=== PATIENT | male | born 1940 | race Caucasian/White ===

== ENCOUNTER 2019-03-06 08:36 | Outpatient (REF) | payer MEDICARE, SELFPAY ==
[2019-03-06 13:39] LABS: ALT 14 U/L (12-78); AST 22 U/L (15-37); Albumin 3.6 g/dL (3.4-5.0); Alkaline Phosphatase 49 U/L (46-116); Anion Gap 8.8 mmol/L (3-11); BUN 23 mg/dL (7-18); Bilirubin, Total 0.4 mg/dL (0.2-1.0); CO2 27.2 mmol/L (21.0-32.0); CREATININE 1.15 mg/dL (0.70-1.30); Calcium 9.1 mg/dL (8.5-10.1); Chloride 104 mmol/L (98-107); Cholesterol 171 mg/dL (50-200); Glucose 85 mg/dL (70-100); HDL Cholesterol 80 mg/dL (40-60); LDL CHOLESTEROL 69 mg/dL (<100); Potassium 4.2 mmol/L (3.5-5.1); Sodium 140 mmol/L (136-145); Total Protein 7.7 g/dL (6.4-8.2); Triglyceride 81 mg/dL (30-150)
== END 2019-03-06 08:56 ==
LOC: NCHCN 08:36
PROVIDERS: PCP Family Medicine; Visit Provider Family Medicine
DX: E78.5 Hyperlipidemia, unspecified (principal); I10 Essential (primary) hypertension
CPT/HCPCS: 80053; 80061; 83721

== ENCOUNTER 2021-03-10 09:22 | Outpatient (REF) | payer MEDICARE, SELFPAY ==
[2021-03-10 13:12] LABS: HCT 41.8 % (40.0-50.0); HGB 14.1 g/dL (13.5-17.5); MCH 31.6 pg (27.0-33.0); MCHC 33.7 % (32.0-36.0); MCV 93.7 fL (80-95); MPV 10.6 fL (8.0-11.0); Platelet Count 297 10^3/uL (130-400); RBC 4.46 10^6/uL (4.36-5.78); RDW 13.2 % (11.8-14.1); RDW-SD 45.1 fL; WBC 6.77 10^3/uL (4.4-10.8)
[2021-03-10 13:33] LABS: ALT 27 U/L (16-63); AST 19 U/L (15-37); Albumin 4.2 g/dL (3.4-5.0); Alkaline Phosphatase 49 U/L (46-116); Anion Gap 7.1 mmol/L (3-11); BUN 25 mg/dL (7-18); Bilirubin, Total 0.6 mg/dL (0.2-1.0); CO2 28.9 mmol/L (21.0-32.0); CREATININE 1.3 mg/dL (0.70-1.30); Calcium 9.7 mg/dL (8.5-10.1); Calculated LDL 87 mg/dL (<100); Chloride 106 mmol/L (98-107); Cholesterol 181 mg/dL (<200); Estimated GFR 53.39 (mL/min/1.73m2); Glucose 101 mg/dL (74-106); HDL Cholesterol 85 mg/dL (40-60); Potassium 5.3 mmol/L (3.5-5.1); Sodium 142 mmol/L (136-145); Total Protein 8.1 g/dL (6.4-8.2); Triglyceride 45 mg/dL (<150)
[2021-03-10 18:22] LABS: PSA, Screening 0.7 ng/mL (0.0-6.5)
== END 2021-03-10 09:23 | disposition home or self-care (01) ==
LOC: NCHCN 09:22
PROVIDERS: PCP Family Medicine; Visit Provider Family Medicine
DX: I10 Essential (primary) hypertension (principal); E78.5 Hyperlipidemia, unspecified; N52.9 Male erectile dysfunction, unspecified; Z12.5 Encounter for screening for malignant neoplasm of prostate
CPT/HCPCS: 80053; 80061; 84153; 85027

== ENCOUNTER 2021-03-31 10:51 | Outpatient (CLI) | payer MEDICARE, SELFPAY ==
--- NOTE | 2021-03-31 09:00 | DI.RAD_ITS ---
Exam(s) XR KNEE LT 3V AP,LAT,CAITLIN EXAM: XR KNEE LT 3V AP,LAT,CAITLIN CLINICAL HISTORY: left knee pain. TECHNIQUE: 2D digital imaging was performed. COMPARISON: No exams were available for comparison FINDINGS: There is no evidence of fracture. There is a joint effusion noted. There is significant narrowing o f the medial compartment and marginal osteophytes. Preservation of height of the lateral compartment noted. Patellofemoral compartment exhibits minimal degenerative changes. Vascular calcification is noted in the popliteal artery.. IMPRESSION: Degenerative changes most evident in the medial compartment. There is also a joint effusion noted DATA REPOSITORY: RADIATION DOSE DELIVERED:
== END 2021-03-31 10:52 | disposition home or self-care (01) ==
LOC: DIORS 10:51
PROVIDERS: PCP Family Medicine; Referring Provider Family Medicine; Visit Provider Student in an Organized Health Care Education/Training Program
DX: M25.562 Pain in left knee (principal); M17.12 Unilateral primary osteoarthritis, left knee; M25.462 Effusion, left knee
CPT/HCPCS: 20610; 73562; 99203; J1040

== ENCOUNTER 2021-09-01 16:32 | Outpatient (REF) | payer MEDICARE, SELFPAY ==
[2021-09-01 21:16] LABS: Uric Acid 8.3 mg/dL (3.5-7.2)
== END 2021-09-01 16:33 | disposition home or self-care (01) ==
LOC: NCHCN 16:32
PROVIDERS: PCP Family Medicine; Visit Provider Family Medicine
DX: M10.9 Gout, unspecified (principal)
CPT/HCPCS: 84550

== ENCOUNTER 2022-03-15 15:38 | Outpatient (REF) | payer MEDICARE, SELFPAY ==
[2022-03-15 15:51] LABS: ALT 24 U/L (16-63); AST 14 U/L (15-37); Albumin 3.9 g/dL (3.4-5.0); Alkaline Phosphatase 60 U/L (46-116); Anion Gap 8.5 mmol/L (3-11); BUN 24 mg/dL (7-18); Bilirubin, Total 0.5 mg/dL (0.2-1.0); CO2 27.5 mmol/L (21.0-32.0); CREATININE 1.4 mg/dL (0.70-1.30); Calcium 9.6 mg/dL (8.5-10.1); Calculated LDL 97 mg/dL (<100); Chloride 107 mmol/L (98-107); Cholesterol 166 mg/dL (<200); Estimated GFR 48.89 (mL/min/1.73m2); Glucose 95 mg/dL (74-106); HDL Cholesterol 53 mg/dL (40-60); Potassium 5.2 mmol/L (3.5-5.1); Sodium 143 mmol/L (136-145); Total Protein 7.3 g/dL (6.4-8.2); Triglyceride 83 mg/dL (<150)
[2022-03-15 17:05] LABS: FREE T4 1.22 ng/dL (0.76-1.46)
== END 2022-03-15 15:39 | disposition home or self-care (01) ==
LOC: NCHCN 15:38
PROVIDERS: PCP Family Medicine; Visit Provider Family Medicine
DX: I10 Essential (primary) hypertension (principal); E03.9 Hypothyroidism, unspecified
CPT/HCPCS: 80053; 80061; 84439; 84443

== ENCOUNTER → 2022-05-15 09:57 | Outpatient (BNVA) | payer MEDICARE, SELFPAY | PROVIDERS: PCP Family Medicine; Referring Provider Family Medicine; Visit Provider Surgery | DX: K40.31 Unilateral inguinal hernia, with obstruction, without gangrene, recurrent (principal); K42.9 Umbilical hernia without obstruction or gangrene | CPT/HCPCS: 99213 ==

== ENCOUNTER 2022-07-21 09:19 | Day surgery (SDC) | payer MEDICARE, SELFPAY ==
[2022-07-21] VITALS (7 sets, daily range): BP systolic 90–116; BP diastolic 51–71; PULSE 55–68; RESP 12–20; TEMP 35.8–36.5; O2SAT 95–99; BMI 25.4
--- NOTE | 2022-07-21 07:18 | W.PM.HP.N ---
Date of service: 07/21/22 Time of Service: 09:56 Assessment and Plan Assessment and plan (1) Right inguinal hernia: Status: Acute Assessment and plan: Proceed with right inguinal and umbilical hernia repairs with mesh. History of Present Illness History of Present Illness Chief Complaint: groin pain Narrative: Teddy is a 81-year-old male with a bulge in the right groin. It is grown in size, become more uncomfortable with weight loss. Physical exam is consistent with an inguinal hernia. Incidentally, he has an umbilical hernia as well. He is interested in elective repair of both of these. Review of Systems All systems reviewed & are unremarkable except as noted in HPI and below PFSH All Active Problems (Updated 07/21/22 @ 07:21 by Taj Anderson MD) Sensorineural hearing loss, bilateral (Acute 08/06/14) Osteoarthritis of left knee (Acute) Right inguinal hernia (Acute) Medical History (Updated 07/21/22 @ 07:21 by Taj Anderson MD) Gout High cholesterol HTN (hypertension) Hypothyroidism Surgical History (Updated 07/21/22 @ 09:27 by Tulio Salmon) Hx of tonsillectomy Social History Smoking/Tobacco Use Status: Former Tobacco Use Quit Date: 10/15/79 Smoking risk assessment performed?: Yes Alcohol Intake: current Alcohol Intake frequency: holidays/special occasions only Drug use: Never Substance use type: does not use Do you feel safe at home: Yes Do you feel safe in your relationship?: Yes Meds Allergies and Home Medications Allergies Allergy/AdvReac Type Severity Reaction Status Date / Time No Known Allergies Allergy Verified 07/21/22 09:27 Home Medications Medication Instructions Recorded Confirmed Type aspirin 81 mg tablet,delayed 81 mg PO DAILY 03/30/21 07/21/22 History release (Adult Aspirin Regimen) chlorthalidone 25 mg tablet 37.5 mg PO DAILY 03/30/21 07/21/22 History levothyroxine 175 mcg capsule 175 mcg PO DAILY 03/30/21 07/21/22 History lisinopril 40 mg tablet 40 mg PO DAILY 03/30/21 07/21/22 History sildenafil 100 mg tablet (Viagra) 100 mg PO DAILY PRN 03/30/21 07/20/22 History turmeric 400 mg capsule 600 mg PO DAILY 03/30/21 07/21/22 History allopurinol 100 mg tablet 100 mg PO DAILY 05/11/22 07/21/22 History colchicine 0.6 mg capsule 1.2 mg PO DAILY PRN 05/11/22 07/20/22 History indomethacin 50 mg capsule 50 mg PO TID 05/11/22 07/21/22 History simvastatin 20 mg tablet 20 mg PO DAILY 05/11/22 07/21/22 History Exam Const General: cooperative, healthy appearing and comfortable Orientation: awake and oriented x3 Eyes General: appearance normal, both eyes and all related structures Conjunctivae: conjunctivae normal Sclera: sclerae normal Resp Effort & Inspection: normal respiratory effort and able to speak in complete sentences Cardio Jugular venous pressure: no JVD Rate: regular rate GI Inspection: non-distended Palpation: soft, no guarding, hernia (Umbilical and right inguinal both reducible) and nontender Auscultation: normal bowel sounds Skin General skin exam: normal turgor Neuro General: patient alert, patient awake and patient oriented x3 Cognition: normal cognition Extrem Right lower extremity: no edema Left lower extremity: no edema
--- NOTE | 2022-07-21 07:20 | PDOC.DSDIS_ITS ---
Discharge Plan Disposition Patient Disposition: HOME Condition: Good Discharge Details Reason For Visit: umbilical and inguinal hernia repair Attending Provider: Taj Anderson Primary Care Provider: Nessa Blackmon Home Meds and New Rx's Prescriptions: New oxycodone 5 mg tablet 5 mg PO Q8H PRN (Reason: pain) Qty: 9 0RF Rx Instructions: Take 1 tablet by mouth every 8 hours as needed for severe pain. Be very careful as this medication is highly addictive. Continued aspirin [Adult Aspirin Regimen] 81 mg tablet,delayed release (DR/EC) 81 mg PO DAILY turmeric 400 mg capsule 600 mg PO DAILY lisinopril 40 mg tablet 40 mg PO DAILY levothyroxine 175 mcg capsule 175 mcg PO DAILY chlorthalidone 25 mg tablet 37.5 mg PO DAILY sildenafil [Viagra] 100 mg tablet 100 mg PO DAILY PRN Rx Instructions: administer 30 minutes to 4 hours before activity simvastatin 20 mg tablet 20 mg PO DAILY indomethacin 50 mg capsule 50 mg PO TID Rx Instructions: administer with food or milk allopurinol 100 mg tablet 100 mg PO DAILY colchicine 0.6 mg capsule 1.2 mg PO DAILY PRN Discharge Instructions Instructions: Umbilical Hernia (DC), Inguinal Hernia Repair (DC) Additional Instructions: 1. Resume all of your medications. 2. Okay to use tylenol and ibuprofen over the counter as needed. 3. Use oxycodone as needed for pain 4. Leave bandage in place for 24 hours, then remove. 5. Shower with warm soapy water. Pat dry. Use a bandaid if needed to protect your clothing. 6. No soaking or tub baths until I see you in the office. 7. No heavy lifting until I see you in the office. 8.Call the office (or go directly to the emergency room after hours) if you notice any of the following: Develop chills (warm to touch), or if you have a thermometer and your temperature is above 101 Difficulty breathing or difficultly swallowing Persistent vomiting Any bleeding ? exceeding one tablespoon 6. Call your physician if the site where your intravenous was started becomes red, swollen, painful, and warm to touch. Referrals: Taj Anderson MD [ [facility] STAFF PHYSICIAN] - Activity:: dont lift 10 lbs Remove Dressings/Wound Care:: 24 hours Shower/Bathe:: 24 hours Diet:: As Tolerated Discharge Orders Discharge Orders: Discharge Order (Routine); Ordered 07/21/22 Ordered By: Taj Anderson DS: Diagnosis Discharge Diagnosis (1) Right inguinal hernia: Status: Acute Asessment and Plan: Follow-up in my office 10 to 14 days for routine postoperative visit
--- NOTE | 2022-07-21 07:24 | W.PM.OP ---
Date of service: 07/21/22 Time of Service: 12:26 Operative Note Operative Note DATE OF PROCEDURE: 07/21/22 PRE-OP DIAGNOSIS: Right inguinal hernia, umbilical hernia POST-OP DIAGNOSIS: same PROCEDURE: Open right inguinal herniorrhaphy with mesh, open umbilical herniorrhaphy with mesh SURGEON: Taj Anderson BUSINESS MANAGEMENT MANAGER: Laquita Newberry Refer to Anesthesia Record ESTIMATED BLOOD LOSS: 50 PATHOLOGY: none sent COMPLICATIONS: None Patient was transported to: PACU Patient's condition: stable Implants: Bard large patch and plug, Ventralex umbilical hernia patch Findings: Right-sided direct and indirect inguinal hernia, reducible umbilical hernia. Procedure Description: I began by confirming the correct site with the patient. Next, after induction of general anesthesia, the anesthesia service used an ultrasound to establish a large myofascial block on the right side, and an umbilical block on the left. Surgical site was then prepped and draped in the usual fashion. I began by making an oblique incision over the right inguinal region. I dissected down through the skin to the deep fascia. Next, I incised the fascia along the length of the inguinal canal to the external ring. I then carefully identified the ilioinguinal nerve and dissected it free from the cord structures. Once this was complete, I bluntly dissected the shelving edge of the inguinal ligament down towards the pubic tubercle. Here, I encircled all cord structures with a [place] drain. Next, I began dissecting the specific cord structures. Great care was taken to spare the vas deferens and the blood supply to the testicle. Next, I isolated the hernia sac from the other inguinal structures. I reduced it back to its normal anatomic position. The floor of the canal was also quite lax. I then used a large mesh plug to obliterate the defect at the internal ring. I fixed in place with interrupted Prolene stitches. Next, I buttressed the posterior floor of the inguinal canal with a large mesh patch. I started by fixing it to the pubic tubercle. Next, I used Prolene sutures to affix it to the shelving edge of the inguinal ligament and the conjoined tendon. Laterally I tacked it to the transversalis fascia and reconstructed an internal ring without any strain on the cord structures. Once this was complete, I irrigated the surgical field. It appeared hemostatic. I then closed the anterior portion of the fascia to reconstruct the front wall of the inguinal canal. I did this with interrupted Vicryl stitches. Once again, I irrigated the surgical field and inspected for hemostasis. Finally, I approximated the superficial fascia and the deep layers of the skin with absorbable suture. Skin was closed with subcuticular sutures. Bandages were applied, the patient was awakened and transferred to the recovery unit. Next, I turned my attention to the umbilicus. I made a semicircular incision on the underside. I dissected down to the umbilical stalk and elevated free from the fascia. Along the inferior margin, was able to identify the hernia sac, and dissected this from the fascial margin. I continued this dissection in a circumferential manner counterclockwise around the umbilical defect. Once the hernia sac was completely mobilized, I reduced it back down into the peritoneal cavity. With adequate overlap, I laid a ventrilex umbilical hernia plug into the appropriate position. I split the mesh packing arms, and affixed them to the fascia. Next, I elevated the surrounding skin making a full-thickness skin flap. I closed the fascia with interrupted Prolene stitches. I then irrigated the surgical site, and pack to the underside of the umbilicus down onto the deep fascia with a Vicryl stitch. I irrigated the skin once again, and closed the skin with a running subcuticular suture. Bandages were applied, the patient was transferred over to the recovery unit in good condition.
--- NOTE | 2022-07-21 09:52 | ANES.PREOP_ITS ---
General Info Date of Service Date Performed: 07/21/22 Height: 5 ft 9 in Weight: 78 kg Body Mass Index (BMI): 25.4 Surgical Procedure: Operation Date: 07/21/22 10:10 Proposed Procedure Side Surgeon p Herniorrhaphy Inguinal and Umbilical w/Mesh Right Taj Anderson MD Meds Allergies and Home Medications Allergies Allergy/AdvReac Type Severity Reaction Status Date / Time No Known Allergies Allergy Verified 07/21/22 09:27 Home Medication Medication Instructions Recorded aspirin 81 mg tablet,delayed 81 mg PO DAILY 03/30/21 release (Adult Aspirin Regimen) chlorthalidone 25 mg tablet 37.5 mg PO DAILY 03/30/21 levothyroxine 175 mcg capsule 175 mcg PO DAILY 03/30/21 lisinopril 40 mg tablet 40 mg PO DAILY 03/30/21 sildenafil 100 mg tablet (Viagra) 100 mg PO DAILY PRN 03/30/21 turmeric 400 mg capsule 600 mg PO DAILY 03/30/21 allopurinol 100 mg tablet 100 mg PO DAILY 05/11/22 colchicine 0.6 mg capsule 1.2 mg PO DAILY PRN 05/11/22 indomethacin 50 mg capsule 50 mg PO TID 05/11/22 simvastatin 20 mg tablet 20 mg PO DAILY 05/11/22 Current Visit Medications: Current Medications Generic Name Dose Route Start Last Admin Trade Name Ulyssesq PRN Reason Stop Dose Admin Acetaminophen 1,000 mg 07/21/22 06:00 Acetaminophen 500 Mg Tab PO 07/21/22 16:00 PREOP OSKAR Acetaminophen 650 mg 07/21/22 07:23 Acetaminophen 325 Mg Tab PO Q4H PRN PRN Celecoxib 200 mg 07/21/22 06:00 Celecoxib 200 Mg Cap PO 07/21/22 16:00 PREOP OSKAR Gabapentin 600 mg 07/21/22 06:00 Gabapentin 300 Mg Cap PO 07/21/22 16:00 PREOP [facility] Ringer's Solution 1,000 mls @ 80 mls/hr 07/21/22 06:00 IV 08/19/22 23:59 INFUSION [facility] Cefazolin Sodium/Dextrose 2 gm in 50 mls @ 100 mls/hr 07/21/22 06:00 Ancef Duplex IVPB 07/21/22 16:00 PREOP [facility] Ondansetron HCl 8 mg/ Sodium 54 mls @ 200 mls/hr 07/21/22 07:23 Chloride IVPB Q6H PRN PRN IV Miscellaneous Supplies 1 each 07/21/22 06:00 Iv Access IV 08/19/22 23:59 DIRECTED OSKAR Morphine Sulfate 2 mg 07/21/22 07:23 Morphine 4 Mg/Ml Syr IVP Q1H PRN PRN Oxycodone HCl 5 mg 07/21/22 07:23 Oxycodone 5 Mg Tab PO Q3H PRN PRN Pain Sodium Chloride 0 ml 07/21/22 06:00 Normal Saline Flush 10 Ml Syr IV 08/19/22 23:59 PRN PRN Sodium Chloride 0 ml 07/21/22 06:00 Normal Saline 10 Ml Vial IJ 08/19/22 23:59 DIRECTED PRN Sterile Water 0 ml 07/21/22 06:00 Water,Injection,Sterile 10 Ml Vial IJ 08/19/22 23:59 DIRECTED PRN PFSH Active Problems Active Problems: Problem Status Onset Code Sensorineural hearing loss, bilateral 08/06/14 H90.3 Osteoarthritis of left knee M17.12 Right inguinal hernia K40.90 Medical History Medical History (Updated 07/21/22 @ 07:21 by Taj Anderson MD) Gout High cholesterol HTN (hypertension) Hypothyroidism Surgical History Surgical History (Updated 07/21/22 @ 09:27 by Tulio Salmon) Hx of tonsillectomy Tobacco Smoking/Tobacco Use Status: Former Tobacco Use Alcohol Alcohol Intake: current Alcohol intake frequency: holidays/special occasions only Substance Use Substance use: Never Substance use type: does not use Vital Signs and Lab Results Vital Signs Most Recent Vital Signs in EMR: Most Recent Vital Signs Temp Pulse Resp BP Pulse Ox 36.2 C L 68 16 116/71 99 07/21/22 09:31 07/21/22 09:31 07/21/22 09:31 07/21/22 09:31 07/21/22 09:31 Lab Results Blood Type / Crossmatch: No Data to Display Complete Blood Count: No Data to Display Complete Metabolic Panel: No Data to Display Liver Function Panel: No Data to Display Coagulation Panel: No Data to Display Cardiac Panel: No Data to Display Arterial Blood Gas: No Data to Display Venous Blood Gas: No Data to Display Pancreas Panel: No Data to Display Thyroid Panel: No Data to Display Infectious Disease: No Data to Display Blood Cultures: No Data to Display Toxicology Panel: No Data to Display Anesthesia Assessment and Plan Anesthesia History Personal History: No History of Anesthesia Complications Family History: No Family History of Anesthesia Complications Exercise Tolerance Exercise Tolerance: Metabolic Equivalents>4 Pertinent Negatives Pertinent Negatives: No Symptoms of GERD, No Major Cardiovascular Symptoms or Complaints, No Major Pulmonary Symptoms or Complaints and No History of CVA/TIA Cardiac & Pulmonary Exam Cardiac Exam: Normal S1/S2 Heart Sounds Pulmonary Exam: Clear Bilateral Breath Sounds Implantable Cardiac Device Does patient have a Pacemaker or an ICD?: No Airway Exam Known Difficult Airway: No Mallampati Class: 3 Mouth Opening: Normal (> 3cm) Thyromental Distance: Greater than 3 cm Neck Range of Motion: Full ROM Neck Circumference: Normal Teeth Condition: Normal Dentition and Generalized Poor Dentition ASA Classification ASA Score: ASA 2 Emergency Case?: No NPO Status NPO Status: NPO Clears >2 hours, Solids >8 hours Anesthesia Plan Resuscitation Status: Full Code Anesthesia Technique: General Anesthesia Airway Planned: LMA Pain Management: Surgeon and patient request nerve block (TAP and rectus sheathe) Monitors Used: Standard Monitors
[2022-07-21] MEDS: Acetaminophen 500 MG TAB 1000 MG PO (10:01)
[2022-07-21] MEDS: Celecoxib 200 MG CAP PO (10:02)
[2022-07-21] MEDS: Gabapentin 300 MG CAP 600 MG PO (10:02)
[2022-07-21] MEDS: Lactated Ringers 1,000 ML 80 ML IV (10:03)
[2022-07-21] MEDS: ceFAZolin 2 GM/50 ML BAG IVPB (10:45)
--- NOTE | 2022-07-21 11:25 | W.ANESNERVE ---
Nerve Block Single Injection Procedure Date and Time Date Performed: 07/21/22 Procedure Start: 10:57 Location Where Procedure Performed Procedure Location: Operating Room Procedure Stop: 11:06 Reason Performed: Postoperative Analgesia Requesting Provider: Taj Anderson Timeout Performed Timeout Performed: Yes Monitoring Used ECG, Blood Pressure, SpO2 and ETCO2 Sterility Sterility: Hand Hygiene, Surgical Cap, Surgical Mask, Sterile Gloves and Chlorhexidine Sedation Given During Procedure Sedation Given (Indicate Dose Given): No Sedation given Patient Mental Status Patient Mental Status: Performed under general anesthesia Nerve Block 1st Nerve Block: Laterality: Right Block Type: TAP Unilateral Needle / Catheter Used: 100mm SonoPlex II Local Anesthetic Bolus (Indicate Dose Given): Injected in 3-5ml increments after negative blood aspiration and Bupivacaine 0.25% Dose:: 20 ml Additives (Indicate Dose Given): Precedex Dose:: 40 mcg Ultrasound: Sterile probe cover and gel used Ultrasound Image Saved?: Yes Nerve Stimulator: Not Used Paresthesia: None Procedure Tolerated: No Complications and Patient tolerated well Procedure Outcome: Successful Performed By: Eric Garcia 2nd Nerve Block: Laterality: Left Block Type: Rectus Shealth Unilateral Needle / Catheter Used: 100mm SonoPlex II Local Anesthetic Bolus (Indicate Dose Given): Injected in 3-5ml increments after negative blood aspiration and Bupivacaine 0.25% Dose:: 20 ml Additives (Indicate Dose Given): Precedex Dose:: 40 mcg Ultrasound: Sterile probe cover and gel used Ultrasound Image Saved?: Yes Nerve Stimulator: Not Used Paresthesia: None Procedure Tolerated: No Complications and Patient tolerated well Procedure Outcome: Successful Performed By: Eric Garcia
[2022-07-21] MEDS: Bupivacaine 0.5% Pres-Free W/EPI 30 ML VIAL (12:00)
--- NOTE | 2022-07-21 12:58 | W.ANESPOSTOP ---
Postoperative Evaluation Date, Time and Location Date Performed: 07/21/22 Time Performed: 12:58 Patient Location: PACU Vital Signs Most Recent Imported Vital Signs: Most Recent Vital Signs Temp Pulse Resp BP Pulse Ox 36.5 C 59 L 18 91/51 L 97 07/21/22 12:45 07/21/22 12:45 07/21/22 12:45 07/21/22 12:45 07/21/22 12:45 Pain Score Most Recent Pain Score: Most Recent Pain Score Pain Level 3 07/21/22 12:45 Assessment Mental Status: Awake (Alert & Oriented to Patient Baseline) Airway and Respiratory Function: Patent airway with normal (patient baseline) respiratory exam Cardiovascular Function: Hemodynamically Stable Hydration Status: Adequately Hydrated Nausea & Vomiting: No Nausea or Vomiting Pain: Pain is tolerable per patient Peripheral Nerve Block: Patient did not receive a nerve block Postoperative Comments:: Seen in PACU prior to tx to DSU. Doing well and denies questions.
== END 2022-07-21 14:22 | disposition home or self-care (01) ==
PROVIDERS: PCP Family Medicine; Visit Provider Surgery
PROC: (CPT 49505; principal; 2022-07-21 10:00)
PROC: (CPT 49505; 2022-07-21 10:00)
DX: K40.90 Unilateral inguinal hernia, without obstruction or gangrene, not specified as recurrent (principal); K42.9 Umbilical hernia without obstruction or gangrene; I10 Essential (primary) hypertension; E03.9 Hypothyroidism, unspecified
CPT/HCPCS: 49505; 49585; 76942; C1781; J0690; J1100; J2405; J2704

== ENCOUNTER → 2022-08-07 09:01 | Outpatient (BNVA) | payer MEDICARE, SELFPAY | PROVIDERS: PCP Family Medicine; Referring Provider Family Medicine; Visit Provider Surgery | DX: Z48.817 Encounter for surgical aftercare following surgery on the skin and subcutaneous tissue (principal) ==

== ENCOUNTER 2023-07-23 12:56 | Outpatient (REF) | payer MEDICARE, SELFPAY ==
[2023-07-23 15:38] LABS: ALT 27 U/L (16-63); AST 17 U/L (15-37); Albumin 4.2 g/dL (3.4-5.0); Alkaline Phosphatase 48 U/L (46-116); Anion Gap 9.4 mmol/L (3-11); BUN 38 mg/dL (7-18); Bilirubin, Total 0.5 mg/dL (0.2-1.0); CO2 26.6 mmol/L (21.0-32.0); CREATININE 1.4 mg/dL (0.70-1.30); Calcium 10.1 mg/dL (8.5-10.1); Calculated LDL 128 mg/dL (<100); Chloride 106 mmol/L (98-107); Cholesterol 210 mg/dL (<200); Estimated GFR 50.81 (mL/min/1.73m2); Glucose 109 mg/dL (74-106); HDL Cholesterol 67 mg/dL (40-60); Potassium 5.6 mmol/L (3.5-5.1); Sodium 142 mmol/L (136-145); Total Protein 7.6 g/dL (6.4-8.2); Triglyceride 75 mg/dL (<150)
== END 2023-07-23 12:57 | disposition home or self-care (01) ==
LOC: NCHCN 12:56
PROVIDERS: PCP Family Medicine; Visit Provider Family Medicine
DX: I10 Essential (primary) hypertension (principal)
CPT/HCPCS: 80053; 80061

== ENCOUNTER 2024-04-10 09:22 | Outpatient (REF) | payer MEDICARE, SELFPAY ==
[2024-04-10 14:46] LABS: ALT 26 U/L (16-63); AST 20 U/L (15-37); Albumin 4.2 g/dL (3.4-5.0); Alkaline Phosphatase 48 U/L (46-116); Anion Gap 8.8 mmol/L (3-11); BUN 32 mg/dL (7-18); Bilirubin, Total 0.81 mg/dL (0.2-1.0); CO2 28.2 mmol/L (21.0-32.0); CREATININE 1.5 mg/dL (0.70-1.30); Calcium 9.9 mg/dL (8.5-10.1); Calculated LDL 108 mg/dL (<100); Chloride 108 mmol/L (98-107); Cholesterol 193 mg/dL (<200); Estimated GFR 46.48 (mL/min/1.73m2); Glucose 106 mg/dL (74-106); HDL Cholesterol 67 mg/dL (40-60); Sodium 145 mmol/L (136-145); TSH (W/Ref FT4) 0.17 uIU/mL (0.36-3.74); Total Protein 7.3 g/dL (6.4-8.2); Triglyceride 93 mg/dL (<150)
[2024-04-10 15:04] LABS: FREE T4 1.24 ng/dL (0.76-1.46)
== END 2024-04-10 09:23 | disposition home or self-care (01) ==
LOC: NCHCN 09:22
PROVIDERS: PCP Family Medicine; Visit Provider Family Medicine
DX: I10 Essential (primary) hypertension (principal); E78.5 Hyperlipidemia, unspecified; E03.9 Hypothyroidism, unspecified
CPT/HCPCS: 80053; 80061; 84439; 84443

== ENCOUNTER 2024-07-17 16:30 | Outpatient (REF) | payer MEDICARE, SELFPAY ==
[2024-07-17 15:02] LABS: Anion Gap 8.1 mmol/L (3-11); BUN 27 mg/dL (7-18); CO2 27.9 mmol/L (21.0-32.0); CREATININE 1.3 mg/dL (0.70-1.30); Chloride 105 mmol/L (98-107); Estimated GFR 55.19 (mL/min/1.73m2); Glucose 99 mg/dL (74-106); Potassium 4.8 mmol/L (3.5-5.1); Sodium 141 mmol/L (136-145); TSH 0.93 uIU/Ml (0.36-3.74)
== END 2024-07-17 16:31 | disposition home or self-care (01) ==
LOC: NCHCN 16:30
PROVIDERS: PCP Family Medicine; Visit Provider Family Medicine
DX: I10 Essential (primary) hypertension (principal)
CPT/HCPCS: 80048; 84443

== ENCOUNTER 2025-04-14 16:10 | Outpatient (REF) | payer MEDICARE, SELFPAY ==
[2025-04-14 16:03] LABS: Abs Immature Grans 0.02 10^3/uL (0.0-0.06); HCT 40.2 % (40.0-50.0); HGB 13.3 g/dL (13.5-17.5); Immature Grans % 0.3 %; MCH 30.6 pg (27.0-33.0); MCHC 33.1 % (32.0-36.0); MCV 93 fL (80-95); MPV 10.5 fL (8.0-11.0); Platelet Count 266 10^3/uL (130-400); RBC 4.34 10^6/uL (4.36-5.78); RDW 13.0 % (11.8-14.1); RDW-SD 44.2 fL; WBC 6.11 10^3/uL (4.4-10.8)
[2025-04-14 16:49] LABS: Anion Gap 8.7 mmol/L (3-11); BUN 31 mg/dL (7-18); CO2 27.3 mmol/L (21.0-32.0); Calcium 9.5 mg/dL (8.5-10.1); Calculated LDL 92 mg/dL (<100); Chloride 104 mmol/L (98-107); Cholesterol 172 mg/dL (<200); Estimated GFR 54.85 (mL/min/1.73m2); Glucose 94 mg/dL (74-106); HDL Cholesterol 62 mg/dL (>or=40); Potassium 4.4 mmol/L (3.5-5.1); Sodium 140 mmol/L (136-145); TSH (W/Ref FT4) 0.44 uIU/mL (0.36-3.74); Triglyceride 92 mg/dL (<150)
[2025-04-14 17:07] LABS: Uric Acid 5.7 mg/dL (3.5-7.2)
== END 2025-04-14 16:11 | disposition home or self-care (01) ==
LOC: NCHCN 16:10
PROVIDERS: PCP Family Medicine; Visit Provider Family Medicine
DX: Z00.00 Encounter for general adult medical examination without abnormal findings (principal); I10 Essential (primary) hypertension; E78.5 Hyperlipidemia, unspecified; E03.9 Hypothyroidism, unspecified; M10.9 Gout, unspecified
CPT/HCPCS: 80048; 80061; 84443; 84550; 85025